=== PATIENT | male | born 1940 | race Hispanic/Latino ===

== ENCOUNTER 2017-10-19 09:19 | Day surgery (SDC) | payer MEDICARE ==
[~2017-10-19 09:19] MED LIST: ANCEF/STERILE WATER 2 GM/20 ML 2 GM/20 ML SYRINGE IV NR; HEPARIN 10,000 UNITS/10 ML IV ONE; HEPARIN 10,000 UNITS/10 ML ONE; MARCAINE 0.5% 30 ML INFILTRATI ONE; MARCAINE 0.5% INFILTRATI ONE; NACL 0.9% 1000 ML 1,000 ML IV SCH; NACL 0.9% 500 ML 500 ML ONE; NACL 0.9% 500 ML IV ONE; NACL 0.9% IR ONE; PAPAVERINE ONE; SODIUM BICARBONATE ONE; XYLOCAINE 1% 20 mL ONE; XYLOCAINE 2% INFILTRATI ONE
[2017-10-19] MEDS ORDERED: MORPHINE IV PRN (10:08)
[2017-10-19] MEDS ORDERED: NACL BACTERIOSTATIC INFILTRATI ONE (10:11)
--- NOTE | 2017-10-19 10:11 | Anesthesia Consultation ---
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
--- NOTE | 2017-10-19 10:12 | Anesthesia Day of Surgery ---
Anesthesia Day of Surgery - Day of Surgery Patient Examined: Yes Patient H&P Reviewed: Yes Patient is NPO: Yes Beta Blockers: No Cardiac Clearance: No Pulmonary Clearance: No
[2017-10-19] MEDS ORDERED: ZOFRAN ONE (10:44)
[2017-10-19] MEDS ORDERED: DECADRON ONE (10:44)
[2017-10-19] MEDS ORDERED: DIPRIVAN 10 MG/ML IV ONE (10:44)
[2017-10-19] MEDS ORDERED: XYLOCAINE MPF 2% ONE (10:45)
[2017-10-19] MEDS ORDERED: SUBLIMAZE ONE (10:46)
[2017-10-19 10:49] LABS: Basophils % (Auto) 0.6 % (0.0-1.8); Eosinophils # (Auto) 0.1 K/mm3 (0.0-0.4); Eosinophils % (Auto) 1.5 % (0.0-4.3); Hematocrit 32.8 % (35.5-45.6); Hemoglobin 10.4 gm/dl (11.8-15.2); Lymphocytes # (Auto) 2.2 K/mm3 (1.2-5.4); Lymphocytes % (Auto) 32.4 % (13.4-35.0); Mean Corpuscular HGB Conc 32 % (32-34); Mean Corpuscular Hemoglobin 26 pg (28-32); Mean Corpuscular Volume 83 fl (84-94); Monocytes # (Auto) 0.8 K/mm3 (0.0-0.8); Monocytes % (Auto) 11.4 % (0.0-7.3); Platelet Count 215 K/mm3 (140-440); Red Blood Count 3.94 M/mm3 (3.65-5.03); Red Cell Distribution Width 15.2 % (13.2-15.2)
[2017-10-19] MEDS ORDERED: NACL 0.9% 1000 ML 1,000 ML IV SCH (11:00)
[2017-10-19 11:04] LABS: Calcium 8.5 mg/dL (8.4-10.2)
[2017-10-19] MEDS ORDERED: ePHEDrine SULFATE ONE (12:47)
--- NOTE | 2017-10-19 14:14 | Short Stay Summary ---
Short Stay Documentation Date of service: 10/19/17 Narrative H&P: See H&P - History H&P: obtained from office - Allergies and Medications Current Medications: Allergies baclofen Allergy (Verified 10/18/17 17:22) Unknown Home Medications Medication Instructions Recorded Confirmed Last Taken Type Diltiazem HCl [Diltiazem 24Hr ER] 180 mg PO DAILY 10/18/17 10/18/17 10/19/17 00: 00 History Doxazosin [Cardura] 4 mg PO DAILY 10/18/17 10/18/17 10/19/17 00:00 History Gemfibrozil [Lopid] 600 mg PO BID 10/18/17 10/18/17 10/19/17 00:00 History Memantine HCl 10 mg PO BID 10/18/17 10/18/17 10/19/17 00:00 History Metaxalone 800 mg PO TID 10/18/17 10/19/17 10/19/17 00:00 History Sertraline [Zoloft] 100 mg PO DAILY 10/18/17 10/19/17 10/18/17 10:00 History Sitagliptin Phosphate [Januvia] 100 mg PO DAILY 10/18/17 10/19/17 10/18/17 10: 00 History Thyroid,Pork [[place] Thyroid] 30 mg PO DAILY 10/18/17 10/19/17 10/18/17 22:00 History Zolpidem [Ambien] 10 mg PO HS 10/18/17 10/19/17 10/18/17 22:00 History Active Medications Cefazolin Sodium (Ancef/Sterile Water 2 Gm/20 Ml) 2 gm in 20 mls @ 80 mls/hr IV PREOP NR; Protocol Stop: 10/19/17 23:59 Sodium Chloride (Nacl 0.9% 1000 Ml) 1,000 mls @ 42 mls/hr IV DIRECT ERICA Last Admin: 10/19/17 10:52 Dose: 42 mls/hr - Brief post op/procedure progress note Date of procedure: 10/19/17 Pre-op diagnosis: End-Stage Renal Disease Post-op diagnosis: same Procedure: Creation of Left Brachiocephalic Arteriovenous Fistula Anesthesia: GETA Surgeon: JAYCEE SLOAN Estimated blood loss: minimal Pathology: none Condition: stable - Disposition Condition at discharge: Good Disposition: DC-01 TO HOME OR SELFCARE Short Stay Discharge Plan Activity: other (no heavy lifting with left arm) Wound: open to air, keep clean and dry, other (okay to wash the wound with soap and water but do not soak in water) Follow up with: JAYCEE SLOAN MD [Staff Physician] - 14 Days Prescriptions: HYDROcodone/APAP 7.5-325 [[place] 7.5/325] 1 each PO Q6HR PRN #40 tablet PRN Reason: Pain
--- NOTE | 2017-10-19 14:16 | Operative Report ---
Operative Report Operative Report: Date of procedure: 10/19/2017 Pre-operative diagnosis: End-Stage Renal Disease Post-operative diagnosis: End-Stage Renal Disease Procedure(s): Creation of Left Brachial Artery to Cephalic Vein Arteriovenous Fistula Surgeon: Ian Frausto MD Principal Consultant: None Anesthesia: Gen. Endotracheal Anesthesia EBL: Minimal Counts: Correct Complications: None Condition: Stable Findings: Successful creation of left brachiocephalic arteriovenous fistula with palpable thrill and palpable radial pulse at the completion of the case. Specimen: None Indications: The patient is a 77-year-old male with a history of end-stage renal disease was currently on hemodialysis through a right internal general permacath. He is in need of long-term dialysis access and has suitable vein for creation of AV fistula. He was given the risk, benefits, and alternative procedures and consented to the procedure. Description of Procedure: The patient was brought to the operating room and laid in supine position after general endotracheal anesthesia was administered the patient was prepped and draped in normal sterile fashion. After anesthetizing the skin a transverse incision was created just below the antecubital crease. Dissection was carried down to the the cephalic vein using sharp dissection. The vein was dissected out both proximally and distally and suture ligated and divided distally. I then ran a 3 Anny proximally in the vein, to ensure patency of the vein. Then flushed the vein with heparinized saline and flow was controlled with a bulldog clamp. I then dissected out the brachial artery through this incision circumferentially both proximal and distal and controlled the artery with vessel loops. I then placed the vessel loops on tension controlling the flow through the artery and created an arteriotomy using an 11 blade and Block scissors. I created an end to side anastomosis between the cephalic vein and brachial artery using a 6-0 Prolene in running fashion. Prior to completing the anastomosis I flushed the artery both proximally and distally and then advanced a 3 Anny proximally to break the spasm in the artery. I then completed the anastomosis and removed all vessel loops allowing flow into the fistula which had an excellent thrill. I achieved hemostasis with a combination of direct pressure and electrocautery. Once hemostasis was achieved I anesthetized the wound with Marcaine. I then closed the wound in 2 layers and 3-0 Vicryl in a running fashion to close the deep dermal layer and 4- 0 Monocryl in a running fashion in the subcuticular layer. I dressed the wound with Surgicel. The patient tolerated the procedure well, all sponge needle and instrument counts were correct. The patient was taken to recovery in stable condition.
[2017-10-19 15:20] VITALS: BP 128/72
== END 2017-10-19 15:55 | disposition home or self-care (01) ==
LOC: OR 09:19
PROVIDERS: ATTEND Surgery Vascular Surgery
DX: I12.0 Hypertensive chronic kidney disease with stage 5 chronic kidney disease or end stage renal disease (principal); N18.6 End stage renal disease; Z86.73 Personal history of transient ischemic attack (TIA), and cerebral infarction without residual deficits; Z87.891 Personal history of nicotine dependence; Z79.899 Other long term (current) drug therapy
CPT/HCPCS: 36415; 36821; 80048; 82962; 85025; J0690; J1100; J1644; J2405; J2440; J2704; J3010; J7030; J7040